=== PATIENT | female | born 1990 | race Two or more races ===

== ENCOUNTER 2021-09-25 09:00 | Outpatient (CLI) | payer OTHER | END 2021-09-25 09:30 | disposition home or self-care (01) | LOC: PPH VACUNA 09:00 | PROVIDERS: ATTEND Emergency Medicine Pediatric Emergency Medicine | DX: Z23 Encounter for immunization (principal) ==

== ENCOUNTER 2021-11-12 07:01 | Emergency (ER) | payer OTHER ==
[~2021-11-12] VITALS: Ht 165.1 cm; Wt 86.2 kg
[2021-11-12] MEDS ORDERED: ZITHROMAX200 MG PO (09:19)
== END 2021-11-12 09:43 | disposition home or self-care (01) ==
LOC: ER 07:01
DX: U07.1 COVID-19 (principal); J06.9 Acute upper respiratory infection, unspecified

== ENCOUNTER 2022-12-04 09:00 | Outpatient (CLI) | payer OTHER ==
[~2022-12-04 09:00] MED LIST: ACETAMINOPHEN650 M2; ZITHROMAX200 MG PO
== END 2022-12-04 09:15 | disposition home or self-care (01) ==
LOC: PPH VACUNA 09:00
PROVIDERS: ATTEND Emergency Medicine Pediatric Emergency Medicine
DX: Z23 Encounter for immunization (principal)

== ENCOUNTER 2023-04-13 01:48 | Emergency (ER) | payer OTHER ==
[~2023-04-13] VITALS: Ht 167.6 cm; Wt 90.7 kg
[2023-04-13] MEDS ORDERED: CIPRO500 MG PO (06:57)
[2023-04-13] MEDS ORDERED: PEPCID40 MG PO (06:57)
[2023-04-13] MEDS ORDERED: ONDANSETRON ODT4 MG PO (06:57)
[2023-04-13] MEDS ORDERED: LEVSIN/SL0.125 MG SL (06:57)
== END 2023-04-13 07:31 ==
LOC: ER 01:48
DX: K52.89 Other specified noninfective gastroenteritis and colitis (principal); Z91.013 Allergy to seafood

== ENCOUNTER → 2023-11-18 | Emergency (ER) | payer OTHER ==
[~2023-11-18] VITALS: Ht 165.1 cm; Wt 88.5 kg
[~2023-11-18] MED LIST changes: +CIPRO500 MG PO; +LEVSIN/SL0.125 MG SL; +ONDANSETRON ODT4 MG PO; +PEPCID40 MG PO
[2023-11-18 10:49] LABS: HEMATOCRIT 37.8 % (36.0-45.00); HEMOGLOBIN 12.8 g/dL (12.0-15.00); MEAN CELL VOLUME 88.3 fL (80.00-100.00); MEAN CORPUSCULAR HEMOGLOBIN 29.9 pg (27.00-32.0); MEAN CORPUSCULAR HGB CONC 33.8 g/dl (32.0-36.0); PH,URINE 5.5 (5.0-8.0); PLATELET COUNT 347 K/uL (150-450); RED BLOOD COUNT 4.28 M/uL (4.00-6.00); RED CELL DISTRIBUTION WIDTH 13.9 % (11.5-14.5); URINE APPEARANCE Cloudy; URINE BILIRRUBIN Negative (NEGATIVE); URINE BLOOD Negative; URINE COLOR Yellow; URINE GLUCOSE Negative (NEGATIVE); URINE LEUKOCYTE Trace; URINE NITRATE Negative; URINE PROTEIN Negative (NEGATIVE)
[2023-11-18 10:53] LABS: URINE BACTERIA 8052.2 uL (0.0-1933); URINE EPITHELIAL CELLS 70.3 uL (0.0-38.8); URINE RBC 20.9 uL (0.0-20.8); URINE WBC 59.2 uL (0.0-23.2)
[2023-11-18 11:24] LABS: CREATININE SERUM 0.66 mg/dL (0.55-1.02); GFR 102.52; POTASSIUM 3.57 mEq/L (3.5-5.1)
== END | disposition home or self-care (01) ==
LOC: ER 09:56
PROVIDERS: Emergency Medicine
DX: U07.1 COVID-19 (principal); B34.8 Other viral infections of unspecified site; E86.0 Dehydration